=== PATIENT | male | born 1960 | race Caucasian/White ===

== ENCOUNTER → 2021-10-27 08:54 | Outpatient (CLI) | payer BC, SELFPAY | PROVIDERS: PCP Family Medicine; Visit Provider Internal Medicine | DX: U07.1 COVID-19 (principal) | CPT/HCPCS: C9803; U0003; U0005 ==

== ENCOUNTER 2021-12-02 09:53 | Day surgery (SDC) | payer BC, SELFPAY ==
[2021-10-27 10:25] VITALS: BMI 28.8
--- NOTE | 2021-10-28 10:12 | SUR.PREOP ---
pt notified of need to cancel procedure tomorrow. pt also notified of positive covid swab.
[2021-11-30 13:40] VITALS: BMI 28.8
[2021-12-02 10:25] VITALS: BP 146/74; PULSE 59; RESP 18; TEMP 36.6; O2SAT 98
--- NOTE | 2021-12-02 11:13 | HMH.ANESCL ---
[facility] Anesthesia Checklist - Patient Identification Patient Identification: Arm Band - Structural Data Admitted From: Home Planned Operative Procedure/s: Colonoscopy Consent for Planned Operative Procedure(s) Verified: Yes - NPO Status Verified Time NPO: 09:30 (Water) - Airway Assessment C-Spine Mobility Assessed: Yes TMJ Mobility Assessed: Yes Dentition: Good Dentition - Neurological Assessment Level of Consciousness: Awake Hx Seizures: No Numbness or tingling in extremities: No - Anesthesia Plan Anesthesia Risk discussed: Yes Anesthesia Plan: Verified ASA Class: I Anesthesia Type: [facility] History I have reviewed the patient's past medical history: Yes Medical History: Denies:: Cancer, Diabetes Mellitus Type 1, Diabetes Mellitus Type 2, MRSA, Seizures *Have you ever received a pneumonia vaccine?: No *Have you received a flu vaccine this season?: No Anesthesia experience/problems:: None Amputation: No Fractures: No - *Social History Last grade of school completed: Advanced degree Smoking Status: Never smoker Alcohol Intake: current Alcohol Intake Frequency:: a few times a month Substance Use Type: denies use *Occupational Status:: retired Housing: house Household Members: spouse *Travel in the last 8 weeks: None Family Hx:: Unable to obtain
[2021-12-02 11:18] VITALS: O2SAT 98
--- NOTE | 2021-12-02 11:39 | HMH.SCOPE ---
- Procedure: Date: 12/02/21 Patient Date of :: 1960 Procedure Performed:: Colonoscopy Indications:: Screening colonoscopy. The patient reports a normal screening colonoscopy 12 years ago Performing Provider:: Chon Sahni MD Referring Provider:: Olman Isabel MD Sedation:: See RN records Procedure:: After placing the patient in the left lateral decubitus position, the colonoscopy was gently inserted into the rectum and under direct visualization advanced to the cecum which was identified by transillumination in the right lower quadrant, identification of the ileocecal valve, appendiceal orifice, and cecal strap. Color, texture, mucosa, and anatomy of the colon were carefully examined with the scope. Findings:: Anal canal: normal Rectum: normal Sigmoid colon: Diverticulosis Descending colon: normal without polyps or inflammatory changes Splenic flexure: normal Transverse colon: normal without polyps or inflammatory changes Hepatic flexure: Diverticulosis Ascending colon: normal without polyps or inflammatory changes Cecum: normal Terminal ileum: not visualized Recommendations:: Higher fiber diet Repeat colonoscopy in 10 years or sooner if clinically indicated Complications:: none Estimated blood obtained (mL): 0
[2021-12-02 11:41] VITALS: BP 91/57; PULSE 60; RESP 18; TEMP 36.2; O2SAT 93
[2021-12-02 11:51] VITALS: BP 101/91; PULSE 58; RESP 18; O2SAT 94
[2021-12-02 12:01] VITALS: BP 122/74; PULSE 53; RESP 18; O2SAT 95
[2021-12-02 12:11] VITALS: BP 145/75; PULSE 48; RESP 18; O2SAT 97
== END 2021-12-02 12:18 | disposition home or self-care (01) ==
LOC: OUTP 09:55
PROVIDERS: PCP Family Medicine; Visit Provider Internal Medicine
PROC: 0DJD8ZZ Inspection of Lower Intestinal Tract, Via Natural or Artificial Opening Endoscopic (ICD-10-PCS; CPT 45378; principal; 2021-12-02 11:00)
DX: Z12.11 Encounter for screening for malignant neoplasm of colon (principal)
CPT/HCPCS: 45378

== ENCOUNTER → 2022-05-31 08:59 | Outpatient (CLI) | payer BC, SELFPAY ==
--- NOTE | 2022-05-31 09:06 | CT_ITS ---
FINAL REPORT CLINICAL HISTORY: H/O NICOTINE DEPENDENCE. former smoker, quit 6 years ago. smoked 1 ppd X 40 years. FINDINGS: Axial images were obtained from the lung apex to the mid abdomen by computed tomography. Low-dose protocol was utilized. CTDl vol(mGy): 2.90 DLP (mGy-cm): 111.51 FINDINGS: There is no axillary adenopathy. There is no hilar or mediastinal adenopathy. The heart size is normal. The ascending aorta is dilated up to 4.3 cm. There is no pericardial or pleural effusion. There is evidence of prior granulomatous disease. The lungs are otherwise clear. There is no suspicious pulmonary mass or nodule. Limited images of the upper abdomen demonstrate likely fatty infiltration of the liver. IMPRESSION: Lung RADS category 1. Recommend 12 month follow-up low-dose chest CT. Modifier S: Ascending aortic aneurysm Reviewed, Interpreted and Dictated by Rosalie Moon MD Transcribed by Emy Hollis Authenticated and [facility]
== END ==
PROVIDERS: PCP Internal Medicine Adolescent Medicine; Visit Provider Internal Medicine Adolescent Medicine
DX: Z87.891 Personal history of nicotine dependence (principal); Z12.2 Encounter for screening for malignant neoplasm of respiratory organs
CPT/HCPCS: 71271

== ENCOUNTER 2023-07-18 10:10 | Outpatient (CLI) | payer BC, SELFPAY ==
--- NOTE | 2023-07-18 10:19 | CT_ITS ---
FINAL REPORT CLINICAL HISTORY: ASCENDING AORTA ANEURYSM COMPARISON: Low-dose chest CT dated 05/31/2022 FINDINGS: CT CHEST WITHOUT AND WITH CONTRAST TECHNIQUE: Pre and postcontrast axial images through the chest were performed by computed tomography. This study was performed with techniques to keep radiation doses as low as reasonably achievable, (ALARA). Individualized dose reduction techniques using automated exposure control or adjustment of mA and/or kV according to the patient's size were employed. FINDINGS: There is no axillary adenopathy. There is no hilar or mediastinal adenopathy. There is stable ectasia of the ascending aorta measuring 4.1 cm. There is no dissection. The heart size is normal. There is no pericardial or pleural effusion. Limited images of the upper abdomen are unremarkable. No suspicious infiltrate or nodule identified. Calcified granulomas are seen in the right midlung. There is mild scarring in the left lung base. IMPRESSION: Stable ectasia of the ascending aorta measuring 4.1 cm. Reviewed, Interpreted and Dictated by Bartolo Darling III, MD Transcribed by Emy Hollis Authenticated and [facility]
[2023-07-18 10:48] LABS: Blood Urea Nitrogen 21 mg/dl (9-20); Estimated Glomerular Filt Rate 85 ml/min (>60); GFR (African American) 103 ML/MIN (>60)
[2023-07-18] MEDS: IOPAMIDOL-370 (76%);100ML BOTTLE 75 ML IV (11:39)
[2023-07-18] MEDS: SODIUM CHLORIDE 0.9% 10ML SYR (RAD ONLY) 10 ML IV (11:40)
== END 2023-07-18 23:59 ==
LOC: RAD 10:11
PROVIDERS: PCP Internal Medicine Adolescent Medicine; Visit Provider Thoracic Surgery (Cardiothoracic Vascular Surgery)
DX: I71.21 Aneurysm of the ascending aorta, without rupture (principal)
CPT/HCPCS: 36415; 71270; 82565; 84520; Q9967

== ENCOUNTER 2024-08-01 06:49 | Outpatient (CLI) | payer MEDICARE, SELFPAY ==
--- NOTE | 2024-08-01 06:57 | CT_ITS ---
FINAL REPORT TECHNIQUE: Thin section axial images were obtained through the lungs using a low-dose technique per lung cancer screening protocol. Reconstruction images were obtained using the axial data. Exam was performed using dose reduction technique. CLINICAL HISTORY: SCREENING FORMER SMOKER QUIT 10 YEARS AGO, 1PPD X41 YEARS COMPARISON: 05/31/2022, 07/18/2023 FINDINGS: CTDLvol: 2.90 DLP: 117.50 Lungs: There is evidence of prior granulomatous disease. The lungs are otherwise clear. No suspicious nodules or mass. Lymph nodes: No thoracic lymphadenopathy. Mediastinum: Heart size is normal. Prominent coronary artery calcifications. Pleura/pericardium: No pleural or pericardial effusion. Other: No acute abnormality in the upper abdomen. IMPRESSION: No suspicious pulmonary nodule or mass. Prominent coronary artery calcifications. Lung RADS: 1S Recommendation: 12-month follow-up low-dose chest CT. Reviewed, Interpreted and Dictated by Rosalie Moon MD Transcribed by Emy Hollis Authenticated and [facility]
[2024-08-01 07:22] LABS: Basophils # 0.1 K/mm3 (0-0.2); Eosinophils # 0.2 K/mm3 (0.0-0.4); Eosinophils % 2.8 % (0.1-12.0); Hematocrit 44.6 % (42.0-52.0); Lymphocytes % 33.6 % (10-50); Mean Corpuscular HGB Conc 33.6 g/dL (31.8-35.4); Mean Corpuscular Hemoglobin 33.6 pg (27.0-31.2); Mean Platelet Volume 11.2 fl (7.4-10.4); Monocytes # 0.5 K/mm3 (0.1-1.0); Monocytes % 7.9 % (1.7-9.3); Neutrophils # 3.2 K/mm3 (1.8-7.8); Neutrophils % 53.2 % (37.0-80.0); Platelet Count 196 K/mm3 (142-424); Red Blood Count 4.46 M/mm3 (4.60-6.20); Red Cell Distribution Width 12.1 % (11.5-17.5)
[2024-08-01 07:58] LABS: Alanine Aminotransferase 29 U/L (12-78); Albumin Level 4.2 g/dl (3.5-5.0); Albumin/Globulin Ratio 1.9 (1.1-1.8); Alkaline Phosphatase 70 U/L (38-126); Anion Gap 8.3 mEq/L (5-15); Aspartate Amino Transferase 32 U/L (17-59); Bilirubin,Total 0.7 mg/dl (0.2-1.3); Blood Urea Nitrogen 14 mg/dl (9-20); Calcium 9.7 mg/dl (8.4-10.2); Carbon Dioxide 29 mmol/L (22.0-30.0); Chloride 106 mmol/L (98-107); Cholesterol 162 mg/dl (140-200); Estimated Glomerular Filt Rate 85 ml/min (>60); GFR (African American) 102 ML/MIN (>60); Globulin 2.2 g/dL (1.3-3.2); Glucose 100 mg/dl (74-100); HDL Cholesterol 80 mg/dl (40-60); Potassium 4.3 mmoL/L (3.5-5.1); Sodium 139 mmol/L (136-145); Total Protein,Serum 6.4 g/dl (6.3-8.2); Triglycerides 109 mg/dl (30-150); Uric Acid 7.2 mg/dl (3.5-8.5); VLDL Cholesterol 22 mg/dL (0-40)
[2024-08-01 08:09] LABS: Direct LDL Cholesterol 55.82 mg/dL (100-129)
== END 2024-08-01 23:59 | disposition home or self-care (01) ==
PROVIDERS: PCP Internal Medicine Adolescent Medicine; Visit Provider Internal Medicine Adolescent Medicine
DX: Z87.891 Personal history of nicotine dependence (principal); I71.21 Aneurysm of the ascending aorta, without rupture; M10.9 Gout, unspecified
CPT/HCPCS: 36415; 71271; 80053; 80061; 84550; 85025